=== PATIENT | male | born 1970 | race Caucasian/White ===

== ENCOUNTER 2019-04-29 09:06 | Emergency (ER) | payer MEDICAID ==
[~2019-04-29] VITALS: Ht 185.4 cm; Wt 140.6 kg
[~2019-04-29 09:06] MED LIST: DEPAKOTE500 MG; LEXAPRO 10 MG T10 MG; TRILIPTAL
[2019-04-29] MEDS ORDERED: LISINOPRIL-HCT1 EACH PO (09:19)
[2019-04-29] MEDS ORDERED: ASPIR 8181 MG PO (09:19)
[2019-04-29] MEDS ORDERED: LIPITOR40 MG PO (09:19)
[2019-04-29] MEDS ORDERED: ELIQUIS5 MG PO (09:20)
[2019-04-29] MEDS ORDERED: IPRAT-ALBUT 0.5-3 ML INH (09:20)
[2019-04-29] MEDS ORDERED: POTASSIUM99 M1 PO (09:20)
[2019-04-29 10:09] LABS: ABSOLUTE BASOPHILS 0.1 thou/uL (0.0-0.2); ABSOLUTE EOSINOPHILS 0.2 thou/uL (0.0-0.7); ABSOLUTE LYMPHOCYTES 2.6 thou/uL (0.8-5.3); ABSOLUTE MONOCYTES 0.6 thou/uL (0.0-1.2); ABSOLUTE NEUTROPHILS 7.1 thou/uL (1.6-8.1); BASOPHILS 0.7 %; EOSINOPHILS 1.7 %; HEMATOCRIT 43.2 % (42.0-52.0); HEMOGLOBIN 14.7 gm/dL (14.0-18.0); LYMPHOCYTES 24.7 %; MCH 27.2 pg (26.0-34.0); MCV 79.8 fL (80.0-100.0); MONOCYTES 5.5 %; MPV 9.3 fl. (7.2-11.1); NUCLEATED RBCS 0 /100WBC; PLATELET COUNT* 240 thou/uL (150-400); POLYS 67.4 %; RBC 5.41 mil/uL (4.50-6.00); RDW-CV 14.2 % (10.5-14.5); WBC 10.6 thou/uL (4.0-11.0)
[2019-04-29 10:11] LABS: BE 3.4 mmol/L (-2 to +3); PO2 73.8 mmHg (75.0-100.0); pH 7.427 (7.340-7.450)
[2019-04-29 10:14] LABS: CALCIUM 8.6 mg/dL (8.5-10.1); CREATININE 1.1 mg/dL (0.6-1.3); POTASSIUM 3.8 mmol/L (3.5-5.1)
[2019-04-29 10:19] LABS: ALBUMIN 3.4 g/dL (3.4-5.0); MAGNESIUM 2.1 mg/dL (1.8-2.4); TOTAL BILIRUBIN 0.5 mg/dL (<0.1-1.0); TOTAL PROTEIN 7.3 g/dL (6.4-8.2)
[2019-04-29 10:39] LABS: URINE BILIRUBIN NEGATIVE (Negative); URINE BLOOD NEGATIVE (Negative); URINE CLARITY CLEAR; URINE COLOR YELLOW; URINE GLUCOSE-RANDOM NEGATIVE (Negative); URINE KETONES NEGATIVE (Negative); URINE LEUKOCYTES-REFLEX NEGATIVE (Negative); URINE NITRITE-REFLEX NEGATIVE (Negative); URINE PROTEIN NEGATIVE (Negative); URINE UROBILINOGEN 0.2 E.U./dl (0.2-1.0)
[2019-04-29 10:59] LABS: NT-PRO BRAIN NAT PEPTIDE 34 pg/mL (<300); TROPONIN-I LEVEL <0.06 ng/mL (<0.06)
[2019-04-29 11:08] LABS: PROTIME 10.6 Seconds (9.20-11.50)
[2019-04-29 11:46] VITALS: BP 119/84
--- NOTE | 2019-04-30 11:52 | EKG ---
[place] [address] ELECTROCARDIOGRAM REPORT Name: GEOFF ARIAS [id number] Admission: 04/29/19 Attend Phys: Discharge: 04/29/19 Date of : 68 Report #: [id number] THIS REPORT FOR: //name// 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
== END 2019-04-29 11:51 | disposition left against medical advice (07) ==
LOC: M.ERS 09:06
PROVIDERS: Personal Emergency Response Attendant
DX: R06.02 Shortness of breath (principal); F32.9 Major depressive disorder, single episode, unspecified; F17.200 Nicotine dependence, unspecified, uncomplicated; Z86.73 Personal history of transient ischemic attack (TIA), and cerebral infarction without residual deficits; Z86.711 Personal history of pulmonary embolism; Z91.041 Radiographic dye allergy status; Z79.01 Long term (current) use of anticoagulants